=== PATIENT | male | born 1950 | race Caucasian/White ===

== ENCOUNTER 2016-09-17 08:25 | Emergency (ER) | payer OTHER ==
[2016-09-17 08:38] VITALS: BP 155/80
--- NOTE | 2016-09-17 08:47 | PROVIDER DOCUMENTATION ---
HPI-Rash/Wound/ReCheck - General Chief Complaint: Suture/Staple Removal Stated Complaint: SUTURE/STAPLE REMOVAL Time Seen by Provider: 09/17/16 08:41 Source: patient Allergies/Adverse Reactions: Allergies Allergy/AdvReac Type Severity Reaction Status Date / Time No Known Allergies Allergy Verified 09/09/16 11:34 Home Medications: Home Medication List Medication Instructions Recorded Confirmed Last Taken Type Aspirin [Aspir-Low] 81 mg PO 09/09/16 Unknown History RAMIpril [Altace] 5 mg PO DAILY 09/09/16 09/09/16 Unknown History - History of Present Illness-Dermatology Nature of Presenting Problem: suture removal x 5 Location: reports: lower extremity Quality: reports: none Onset/Duration: reports: other (8 days) Timing: reports: still present Context/Associated Symptoms: reports: denies symptoms Identifiable cause?: Yes Review of Systems - Adult - REVIEW OF SYSTEMS - ADULT Constitutional: reports: no symptoms reported Eyes: reports: no symptoms reported Ears, Nose, Mouth & Throat: reports: no symptoms reported Cardiovascular: reports: no symptoms reported Respiratory: reports: no symptoms reported Gastrointestinal: reports: no symptoms reported Genitourinary: reports: no symptoms reported Musculoskeletal: reports: no symptoms reported Integumentary: reports: no symptoms reported Neurological: reports: no symptoms reported Endocrine: reports: no symptoms reported Hematologic/Lymphatic: reports: no symptoms reported Past History - Adult - PAST MEDICAL HISTORY-ADULT Review of Records: reports: Nursing Assessment Review, Medications Reviewed, Social history reviewed & non-contributory. - IMMUNIZATION STATUS Childhood Immunizations: See Nurse Assessment Flu Vaccine: See Nurse Assessment Physical Exam-General - PHYSICAL EXAM-ADULT Initial Vital Signs Reviewed: Yes - CONSTITUTIONAL General Appearance: appears well - EYES Eyes: PERRL/EOMI - HEAD, EARS, NOSE, MOUTH & THROAT HENMT: normocephalic/atraumatic - NECK Neck: supple - RESPIRATORY Respiratory: no respiratory distress - CARDIOVASCULAR Cardiovascular: regular rate, rhythm - LYMPHATIC Lymphatic: no adenopathy - MUSCULOSKELETAL Back Exam: normal inspection - SKIN Integumentary: laceration(s) - NEUROLOGIC Neurologic: grossly normal Departure - Departure Time of Disposition Order: 08:47 DIAGNOSIS: Visit for suture removal Disposition: HOME 01 Certified Medical Emergency: Emergent Condition: Stable Additional Instructions: ED Follow Up Instructions: You have been treated by a care provider in the Emergency Department. These instructions are being provided to you so you can have an understanding of how to care for yourself upon discharge. Upon discharge from the Emergency Department, you are responsible for making arrangements for follow-up care by a physician of your choice. Take all prescribed medications as directed. Return to the Emergency Department immediately for any new or worsening symptoms. You may call the Physician Referral phone number at [phone] to obtain a list of Physicians who are taking new patients. Referrals: Luis Miguel Minaya MD [Primary Care Provider] - Instructions: Suture Removal, Care After
== END 2016-09-17 08:51 | disposition home or self-care (01) ==
LOC: P.ED 08:25
DX: Z48.02 Encounter for removal of sutures (principal); S81.012D Laceration without foreign body, left knee, subsequent encounter; Z79.899 Other long term (current) drug therapy; Z79.82 Long term (current) use of aspirin